=== PATIENT | male | born 1965 | race Two or more races ===

== ENCOUNTER 2024-05-22 08:12 | Emergency (ER) | payer OTHER ==
[~2024-05-22] VITALS: Ht 175.3 cm; Wt 72.6 kg
[2024-05-22] MEDS ORDERED: ORPHENADRINE CITRATE 30 MG/ML AMPUL IM ONE (08:45)
[2024-05-22] MEDS ORDERED: KETOROLAC TROMETHAMINE 60 MG VIAL IM ONE ×2 (08:45→08:59)
[2024-05-22] MEDS ORDERED: KETO10TA2 PO (08:49)
[2024-05-22] MEDS ORDERED: NORFLEX100MG PO (08:49)
[2024-05-22] MEDS ORDERED: ORPHENADRINE CITRATE 30 MG/ML AMPUL ONE (08:58)
== END 2024-05-22 09:17 | disposition home or self-care (01) ==
LOC: ER 08:13
DX: M62.830 Muscle spasm of back (principal)

== ENCOUNTER 2024-06-23 13:33 | Emergency (ER) | payer OTHER ==
[~2024-06-23] VITALS: Ht 175.3 cm; Wt 74.4 kg
[~2024-06-23 13:33] MED LIST: KETO10TA2 PO; NORFLEX100MG PO
[2024-06-23] MEDS ORDERED: ORPHENADRINE CITRATE 30 MG/ML AMPUL IM ONE (14:45)
[2024-06-23] MEDS ORDERED: DEXAMETHASONE SODIUM PHOSPHATE 4 MG/ML VIAL IM ONE (14:45)
[2024-06-23] MEDS ORDERED: ORPHENADRINE CITRATE 30 MG/ML AMPUL ONE (14:46)
[2024-06-23] MEDS ORDERED: DEXAMETHASONE SODIUM PHOSPHATE 4 MG/ML VIAL ONE (14:47)
[2024-06-23] MEDS ORDERED: NORFLEX100MG PO (15:48)
[2024-06-23] MEDS ORDERED: DICLOFENAC SODI50 MG PO (15:48)
== END 2024-06-23 16:17 ==
LOC: ER 13:35
DX: M62.830 Muscle spasm of back (principal); M51.36 Other intervertebral disc degeneration, lumbar region; Z91.018 Allergy to other foods